=== PATIENT | female | born 2000 | race Two or more races ===

== ENCOUNTER → 2022-07-25 | Emergency (ER) | payer OTHER ==
[~2022-07-25] VITALS: Ht 170.2 cm; Wt 54.9 kg
== END | disposition left against medical advice (07) ==
LOC: ER 03:26
DX: Z53.21 Procedure and treatment not carried out due to patient leaving prior to being seen by health care provider (principal)

== ENCOUNTER → 2024-05-25 | Emergency (ER) | payer BC ==
[~2024-05-25] VITALS: Ht 165.1 cm; Wt 54.4 kg
[~2024-05-25] MED LIST: ACETAMINOPHEN 325 MG TABLET PO STA; ACETAMINOPHEN 500 MG GEL..CAP PO ONE; levoFLOXacin IN DEXTROSE 5 % 5 MG/ML PIGGYBAG IV STA
[2024-05-25 17:44] LABS: URINE APPEARANCE Cloudy; URINE BILIRRUBIN Negative (NEGATIVE); URINE BLOOD Small; URINE COLOR Yellow; URINE GLUCOSE Negative (NEGATIVE); URINE KETONE Negative (NEGATIVE); URINE LEUKOCYTE Large; URINE NITRATE Negative; URINE PROTEIN Trace (NEGATIVE); URINE UROBILINOGEN 0.2 E.U./dl
[2024-05-25 17:46] LABS: URINE BACTERIA 540.9 uL (0.0-1933); URINE EPITHELIAL CELLS 14.8 uL (0.0-38.8); URINE WBC 1092.9 uL (0.0-23.2)
[2024-05-25 18:01] LABS: URINE CAST 0.44 uL (0.0-1.40)
[2024-05-25 18:06] LABS: CALCIUM 9.1 mg/dL (8.5-10.1); CREATININE SERUM 0.71 mg/dL (0.55-1.02); GFR 101.13; POTASSIUM 4.24 mEq/L (3.5-5.1)
[2024-05-25 18:57] LABS: HEMATOCRIT 38.5 % (36.0-45.00); HEMOGLOBIN 12.9 g/dL (12.0-15.00); MEAN CELL VOLUME 81.5 fL (80.00-100.00); MEAN CORPUSCULAR HEMOGLOBIN 27.2 pg (27.00-32.0); MEAN CORPUSCULAR HGB CONC 33.4 g/dl (32.0-36.0); PLATELET COUNT 254 K/uL (150-450); RED BLOOD COUNT 4.73 M/uL (4.00-6.00); RED CELL DISTRIBUTION WIDTH 13.6 % (11.5-14.5)
== END | disposition home or self-care (01) ==
LOC: ER 13:35
PROVIDERS: General Practice
DX: N39.0 Urinary tract infection, site not specified (principal); Z20.822 Contact with and (suspected) exposure to COVID-19